=== PATIENT | female | born 1965 | race Caucasian/White ===

== ENCOUNTER 2020-06-05 19:07 | Emergency (ER) | payer BC, SELFPAY ==
[2020-06-05 20:02] LABS: INR-International Normal Ratio 1.4; PTT 34.2 sec (22.9-36.1); Prothrombin Time 17.2 sec (12.0-14.7)
[2020-06-05 20:12] LABS: ALT (SGPT) 37 U/L (8-55); AST (SGOT) 69 U/L (5-34); Albumin 2.1 g/dL (3.5-5.0); Alkaline Phosphatase 181 U/L (40-110); Anion Gap 12 mmol/L (10-20); BUN (Urea Nitrogen) 9 mg/dL (9.8-20.1); Bilirubin, Total 0.9 mg/dL (0.2-1.2); Calc. Creatinine Clearance 0 mL/min (70-130); Calcium 7.7 mg/dL (7.8-10.44); Carbon Dioxide 21 mmol/L (22-29); Chloride 106 mmol/L (98-107); Estimated GFR-MDRD 85; Globulin 4.1 g/dL (2.4-3.5); Glucose 105 mg/dL (70-105); Lipase 33 U/L (8-78); Protein, Total 6.2 g/dL (6.0-8.3); Sodium 136 mmol/L (136-145)
[2020-06-05 20:18] LABS: #Basophils 0.1 thou/uL (0.0-0.2); #Eosinphils 0.1 thou/uL (0.0-0.7); #Neutrophils 5.2 thou/uL (1.40-6.50); %Basophils 0.8 % (0.0-1.0); %Eosinophils 1.5 % (0.0-10.0); %Lymphocytes 13.4 % (21.0-51.0); %Monocytes 13.6 % (0.0-10.0); %Neutrophils 70.7 % (42.0-75.0); Anisocytosis SLIGHT = 6-15 cells (100X) (0-5/hpf); Band 2 % (5-11); Eosinophils 1 % (0-10); Hemoglobin 8.5 g/dL (12.0-16.0); Hypochromia SLIGHT = 6-15 cells (100X) (0-5/hpf); Lymphocytes 17 % (21-51); MDiff Complete? YES; Mean Corpuscular HGB CONC 27.7 g/dL (32.0-36.0); Mean Corpuscular Hemoglobin 17.8 pg (27.0-31.0); Mean Corpuscular Volume 64.4 fL (78.0-98.0); Mean Platelet Volume 7.2 fL (7.4-10.4); Microcytosis SLIGHT = 6-15 cells (100X) (0-5/hpf); Monocytes 9 % (0-10); Neutrophil 71 % (42-75); Ovalocytes SLIGHT = 2-5 cells (100X) (0-1/hpf); Platelet Count 166 thou/uL (130-400); Poikilocytosis SLIGHT = 6-15 cells (100X) (0-5/hpf); RBC Distribution Width 20.8 % (11.5-14.5); Red Blood Cell (RBC) Count 4.78 mill/uL (4.20-5.40); Schistocytes SLIGHT = 2-5 cells (100X) (0-1/hpf); Target Cells SLIGHT = 2-5 cells (100X) (0-1/hpf); Tear Drops SLIGHT = 2-5 cells (100X) (0-1/hpf); White Blood Cell (WBC) Count 7.3 thou/uL (4.8-10.8)
[2020-06-05] MEDS ORDERED: Potassium Chloride 20 MEQ TAB ONE (20:47)
[2020-06-05 21:00] LABS: CKMB 4.4 ng/mL (0-6.6)
== END 2020-06-05 21:52 | disposition home or self-care (01) ==
LOC: BURERS 19:07
DX: B19.20 Unspecified viral hepatitis C without hepatic coma (principal); R18.8 Other ascites; I11.0 Hypertensive heart disease with heart failure; I50.9 Heart failure, unspecified; E78.5 Hyperlipidemia, unspecified; F31.9 Bipolar disorder, unspecified; F98.8 Other specified behavioral and emotional disorders with onset usually occurring in childhood and adolescence; F17.210 Nicotine dependence, cigarettes, uncomplicated
CPT/HCPCS: 36415; 49083; 80053; 82553; 83605; 83690; 83880; 84484; 85025; 85610; 85730; 87070; 87205; 93005; 96360